=== PATIENT | female | born 1960 | race Hispanic/Latino ===

== ENCOUNTER 2016-05-31 18:47 | Inpatient (IN) | payer MEDICAID, OTHER ==
[2016-05-31] MEDS ORDERED: ZOFRAN IV ONE ×2 (19:53→21:28)
[2016-05-31 20:18] LABS: Basophils % (Auto) 0.4 % (0.0-1.8); Eosinophils % (Auto) 0.1 % (0.0-4.3); Hematocrit 30.5 % (30.3-42.9); Hemoglobin 10.1 gm/dl (10.1-14.3); Mean Corpuscular HGB Conc 33 % (30-34); Mean Corpuscular Hemoglobin 26 pg (28-32); Mean Corpuscular Volume 80 fl (79-97); Platelet Count 191 K/mm3 (140-440); Red Blood Count 3.82 M/mm3 (3.65-5.03); Red Cell Distribution Width 15.2 % (13.2-15.2); White Blood Count 11.7 K/mm3 (4.5-11.0)
[2016-05-31 20:32] LABS: BUN/Creatinine Ratio 15.45; Calcium 8.1 mg/dL (8.4-10.2); Chloride 91.8 mmol/L (98-107); Potassium 3.6 mmol/L (3.6-5.0)
[2016-05-31 20:36] LABS: Alanine Aminotransferase 14 units/L (7-56); Albumin 2.5 g/dL (3.9-5); Albumin/Globulin Ratio 0.6 %; Alkaline Phosphatase 150 units/L (35-129); Bilirubin,Direct 0.3 mg/dL (0-0.2); Bilirubin,Indirect 0.4 mg/dL; Bilirubin,Total 0.7 mg/dL (0.1-1.2); Creatine Kinase 112 units/L (30-135); Lipase 85 units/L (13-60)
[2016-05-31 20:37] LABS: Creatine Kinase MB < 1.0 ng/mL (0.0-4.0)
[2016-05-31] MEDS ORDERED: TYLENOL PO ONE (20:55)
[2016-05-31] MEDS ORDERED: NACL 0.9% 1000 ML 1,000 ML IV ONE (20:55)
[2016-05-31] MEDS ORDERED: DILAUDID IV ONE (21:28)
[2016-05-31 21:33] LABS: Bacteria,Urine 2+ /HPF (Negative); Bilirubin,Urine NEG (Negative); Blood,Urine MOD (Negative); Ketones,Urine TR mg/dL (Negative); Leukocyte Esterase,Urine LG (Negative); Mucus,Urine FEW /HPF; Nitrite,Urine NEG (Negative); Urobilinogen,Urine < 2.0 mg/dL (<2.0)
[2016-05-31 21:34] LABS: Protein,Urine >500 mg/dL (Negative)
[2016-05-31 21:35] LABS: WBC,Urine > 182.0 /HPF (0.0-6.0)
--- NOTE | 2016-05-31 22:46 | Cat Scan Report ---
FINAL REPORT PROCEDURE: CT ABDOMEN PELVIS WO CON TECHNIQUE: Computerized axial tomography of the abdomen and pelvis was performed without intravenous contrast. This study is performed without intravascular contrast material and its sensitivity for abdominal and pelvic pathology, including neoplasms, inflammation, abscess, free fluid, thrombosis, arterial dissection and infarction, is reduced compared with a contrast enhanced study. HISTORY: abd pain n/v COMPARISON: No prior studies are available for comparison. FINDINGS: Visualized lower thorax: No significant abnormality. Liver: Heterogeneous density. There is nodular contour and enlarged left hepatic lobe, suggesting cirrhotic changes. Spleen: Calcified granulomas are present. The spleen is mildly prominent. Gallbladder and biliary system: There has been cholecystectomy. Small amount of intrahepatic air is seen in the left hepatic lobe, favored to be related to biliary air. Pancreas: Normal. Adrenals: Normal. Kidneys: No hydronephrosis or urolithiasis. GI tract: Mild sigmoid diverticulosis. No appendiceal inflammation. No evidence of bowel obstruction. Mild wall thickening and stranding of the 2nd portion of the duodenum may be related to duodenitis Lymph nodes and mesentery: Numerous subcentimeter upper abdominal nodes are noted. Vasculature: Aortic atherosclerotic calcification. Bladder: Normal. Reproductive organs: Normal. Peritoneum: Trace amount of free fluid is seen surrounding the liver.. Musculoskeletal structures: Focal depression of the superior endplate of L3 is likely a Schmorl's node. Other: Small fat containing periumbilical hernia. IMPRESSION: Cirrhotic changes of the liver. Upper abdominal lymphadenopathy. Intrahepatic air is favored to be related to pneumobilia related to prior surgery. Mild wall thickening and stranding of the duodenum concerning for duodenitis.
[2016-05-31] MEDS ORDERED: ROCEPHIN/NS 1 GM/50 ML 1 GM/50 ML BAG IV ONE (22:59)
--- NOTE | 2016-05-31 23:06 | Emergency Department Report ---
ED N/V/D HPI - General Chief complaint: Hyperglycemia Stated complaint: HIGH BLOOD SUGAR Time Seen by Provider: 05/31/16 19:52 Source: patient, EMS Mode of arrival: Stretcher Limitations: No Limitations - History of Present Illness Initial comments: 55-year-old female with a past medical history previous CVA, Cabgx 3 hepatitis, liver cirrhosis, diabetes, hypertension, and previous cholecystectomy present to the hospital with complaints of nausea and vomiting since yesterday. Patient been noncompliant with her insulin for about 5 days. Yesterday she developed nausea vomiting and diarrhea with by mouth intolerance. Positive fever and chills reported. Serum 100.1 here. Patient denies any chest pain. Patient does complain of some abdominal pain and states that she fell recently striking her abdomen. Pain is moderate, aching, intermittent, and worse with palpation. No reports of respiratory symptoms. [employer] states she recently moved back here from [place] and ran out of medications because she did not have a doctor locally. She did receive her flu shot this year. Patient also states she supposedly of Seroquel and Lyrica and has a history of manic depressive disorder. - Related Data Home Medications Medication Instructions Recorded Confirmed Last Taken glipiZIDE [glipiZIDE XL] 10 mg PO QDAY 03/17/13 03/18/13 Unknown metFORMIN [Glucophage] 500 mg PO BID 03/17/13 03/18/13 Unknown Previous Rx's Medication Instructions Recorded Last Taken Type Clindamycin [Clindamycin Oral] 300 mg PO Q8H #30 cap 03/18/13 Unknown Rx Allergies Allergy/AdvReac Type Severity Reaction Status Date / Time morphine AdvReac Itching Verified 03/18/13 12:01 ED Review of Systems ROS: Stated complaint: HIGH BLOOD SUGAR Other details as noted in HPI Comment: All other systems reviewed and negative Other: Constitutional: + fever Eyes: No eye pain visual changes or discharge ENT: No ear pain or throat pain Neck: Denies pain Respiratory: Denies cough wheezing Cardiovascular: Denies chest pain, palpitations, syncope Endocrine: elevated glucose : denies dysuria GI: as per hpi Musculoskeletal: Denies back pain Skin: Denies rash, lesions, erythema Neurologic: Denies headache, numbness, weakness Psychiatric: Denies suicidal ideation, hallucinations ED Past Medical Hx - Past Medical History Hx Hypertension: Yes Hx CVA: Yes (x2) Hx Diabetes: Yes Hx Psychiatric Treatment: Yes (manic depressive disorder) Additional medical history: hepatitis, Liver cirrhosis - Surgical History Hx Open Heart Surgery: Yes Hx Cholecystectomy: Yes Additional Surgical History: c section x 3, CABG - Social History Smoking Status: Current Every Day Smoker Substance Use Type: None - Medications Home Medications: Home Medications Medication Instructions Recorded Confirmed Last Taken Type glipiZIDE [glipiZIDE XL] 10 mg PO QDAY 03/17/13 03/18/13 Unknown History metFORMIN [Glucophage] 500 mg PO BID 03/17/13 03/18/13 Unknown History Clindamycin [Clindamycin Oral] 300 mg PO Q8H #30 cap 03/18/13 Unknown Rx ED Physical Exam - General Limitations: No Limitations - Other Other exam information: General: No limitations, patient is alert in no acute distress Head exam: Atraumatic, normocephalic Eyes exam: Normal appearance ENT: dry mucous membrane Neck exam: Normal inspection, full range of motion, nontender Respiratory exam: Clear to auscultation bilateral, no wheezes, rales, crackles Cardiovascular: Normal rate and rhythm, tachycardic Abdomen: Soft, ecchymosis to epigastric area. Tender to palpation epigastric area and right abdomen Extremity: Full range of motion normal inspection no deformity Back: Normal Inspection, full range of motion, no tenderness Neurologic: Alert, oriented x3, cranial nerves intact, no motor or sensory deficit Psychiatric: normal affect, normal mood Skin: Warm, dry, intact ED Course Vital Signs 05/31/16 05/31/16 05/31/16 19:20 19:41 19:46 Temperature Pulse Rate 57 L 110 H 108 H Respiratory 14 14 16 Rate Blood Pressure 132/68 Blood Pressure [Left] O2 Sat by Pulse 100 95 Oximetry 05/31/16 05/31/16 05/31/16 19:50 19:56 20:00 Temperature 100.1 F H Pulse Rate 107 H 107 H 103 H Respiratory 16 19 15 Rate Blood Pressure 132/68 132/68 145/56 Blood Pressure 145/56 [Left] O2 Sat by Pulse 97 97 96 Oximetry 05/31/16 05/31/16 05/31/16 20:06 20:10 20:16 Temperature Pulse Rate 101 H 100 H 102 H Respiratory 21 22 16 Rate Blood Pressure 145/56 145/56 145/56 Blood Pressure [Left] O2 Sat by Pulse 95 96 98 Oximetry 05/31/16 05/31/16 05/31/16 20:20 20:26 20:30 Temperature Pulse Rate 106 H 108 H 108 H Respiratory 15 13 17 Rate Blood Pressure 145/56 145/56 131/65 Blood Pressure [Left] O2 Sat by Pulse 98 98 97 Oximetry 05/31/16 05/31/16 05/31/16 20:36 20:40 20:46 Temperature Pulse Rate 108 H 109 H 109 H Respiratory 13 18 22 Rate Blood Pressure 131/65 131/65 131/65 Blood Pressure [Left] O2 Sat by Pulse 97 97 96 Oximetry 05/31/16 05/31/16 05/31/16 20:50 20:56 21:00 Temperature Pulse Rate 113 H 110 H 109 H Respiratory 17 15 15 Rate Blood Pressure 131/65 131/65 128/103 Blood Pressure [Left] O2 Sat by Pulse 99 98 96 Oximetry 05/31/16 05/31/16 05/31/16 21:06 21:10 21:16 Temperature Pulse Rate 107 H 105 H 104 H Respiratory 12 14 19 Rate Blood Pressure 128/103 128/103 128/103 Blood Pressure [Left] O2 Sat by Pulse 97 97 97 Oximetry 05/31/16 05/31/16 05/31/16 21:20 21:26 21:30 Temperature Pulse Rate 103 H 100 H 100 H Respiratory 19 19 19 Rate Blood Pressure 128/103 128/103 141/66 Blood Pressure [Left] O2 Sat by Pulse 98 99 98 Oximetry 05/31/16 05/31/16 05/31/16 21:36 21:37 21:47 Temperature Pulse Rate 98 H Respiratory 14 12 12 Rate Blood Pressure 141/66 Blood Pressure [Left] O2 Sat by Pulse 98 Oximetry - Reevaluation(s) Reevaluation #1: 05/31/16 23:13 Nausea and vomiting improved with Zofran. IV fluids initiated recent denies history CHF despite significant cardiac history ED Medical Decision Making - Lab Data Result diagrams: 05/31/16 19:51 05/31/16 19:51 Lab Results 05/31/16 05/31/16 05/31/16 Range/Units 19:47 19:51 19:51 WBC 11.7 H (4.5-11.0) K/mm3 RBC 3.82 (3.65-5.03) M/mm3 Hgb 10.1 (10.1-14.3) gm/dl Hct 30.5 (30.3-42.9) % MCV 80 (79-97) fl MCH 26 L (28-32) pg MCHC 33 (30-34) % RDW 15.2 (13.2-15.2) % Plt Count 191 (140-440) K/mm3 Lymph % (Auto) 4.2 L (13.4-35.0) % [place] % (Auto) 6.0 (0.0-7.3) % Eos % (Auto) 0.1 (0.0-4.3) % Baso % (Auto) 0.4 (0.0-1.8) % Lymph # 0.5 L (1.2-5.4) K/mm3 [place] # 0.7 (0.0-0.8) K/mm3 Eos # 0.0 (0.0-0.4) K/mm3 Baso # 0.1 (0.0-0.1) K/mm3 Seg Neutrophils % 89.3 H (40.0-70.0) % Seg Neutrophils # 10.4 H (1.8-7.7) K/mm3 VBG pH (7.320-7.420) Sodium 130 L (137-145) mmol/L Potassium 3.6 (3.6-5.0) mmol/L Chloride 91.8 L (98-107) mmol/L Carbon Dioxide 24 (22-30) mmol/L Anion Gap 18 mmol/L BUN 17 (7-17) mg/dL Creatinine 1.1 (0.7-1.2) mg/dL Estimated GFR 51 ml/min BUN/Creatinine Ratio 15.45 % Glucose 489 H (65-100) mg/dL POC Glucose > 500 H (70-105) Lactic Acid (0.7-2.0) mmol/L Calcium 8.1 L (8.4-10.2) mg/dL Total Bilirubin (0.1-1.2) mg/dL Direct Bilirubin (0-0.2) mg/dL Indirect Bilirubin mg/dL AST (5-40) units/L ALT (7-56) units/L Alkaline Phosphatase (35-129) units/L Total Creatine Kinase (30-135) units/L CK-MB (CK-2) (0.0-4.0) ng/mL CK-MB (CK-2) Rel Index (0-4) Troponin T (0.00-0.029) ng/mL Total Protein (6.3-8.2) g/dL Albumin (3.9-5) g/dL Albumin/Globulin Ratio % Lipase (13-60) units/L Urine Color (Yellow) Urine Turbidity (Clear) Urine pH (5.0-7.0) Ur Specific [place] (1.003-1.030) Urine Protein (Negative) mg/dL Urine Glucose (UA) (Negative) mg/dL Urine Ketones (Negative) mg/dL Urine Blood (Negative) Urine Nitrite (Negative) Urine Bilirubin (Negative) Urine Urobilinogen (<2.0) mg/dL Ur Leukocyte Esterase (Negative) Urine WBC (Auto) (0.0-6.0) /HPF Urine RBC (Auto) (0.0-6.0) /HPF Urine Bacteria (Auto) (Negative) /HPF Urine Mucus /HPF Ketones (-0.28) mmol/L 05/31/16 05/31/16 05/31/16 Range/Units 19:51 20:00 20:00 WBC (4.5-11.0) K/mm3 RBC (3.65-5.03) M/mm3 Hgb (10.1-14.3) gm/dl Hct (30.3-42.9) % MCV (79-97) fl MCH (28-32) pg MCHC (30-34) % RDW (13.2-15.2) % Plt Count (140-440) K/mm3 Lymph % (Auto) (13.4-35.0) % [place] % (Auto) (0.0-7.3) % Eos % (Auto) (0.0-4.3) % Baso % (Auto) (0.0-1.8) % Lymph # (1.2-5.4) K/mm3 [place] # (0.0-0.8) K/mm3 Eos # (0.0-0.4) K/mm3 Baso # (0.0-0.1) K/mm3 Seg Neutrophils % (40.0-70.0) % Seg Neutrophils # (1.8-7.7) K/mm3 VBG pH 7.388 (7.320-7.420) Sodium (137-145) mmol/L Potassium (3.6-5.0) mmol/L Chloride (98-107) mmol/L Carbon Dioxide (22-30) mmol/L Anion Gap mmol/L BUN (7-17) mg/dL Creatinine (0.7-1.2) mg/dL Estimated GFR ml/min BUN/Creatinine Ratio % Glucose (65-100) mg/dL POC Glucose (70-105) Lactic Acid 1.9 (0.7-2.0) mmol/L Calcium (8.4-10.2) mg/dL Total Bilirubin 0.7 (0.1-1.2) mg/dL Direct Bilirubin 0.3 H (0-0.2) mg/dL Indirect Bilirubin 0.4 mg/dL AST 25 (5-40) units/L ALT 14 (7-56) units/L Alkaline Phosphatase 150 H (35-129) units/L Total Creatine Kinase 112 (30-135) units/L CK-MB (CK-2) < 1.0 (0.0-4.0) ng/mL CK-MB (CK-2) Rel Index 0.8 (0-4) Troponin T < 0.010 (0.00-0.029) ng/mL Total Protein 7.0 (6.3-8.2) g/dL Albumin 2.5 L (3.9-5) g/dL Albumin/Globulin Ratio 0.6 % Lipase 85 H (13-60) units/L Urine Color (Yellow) Urine Turbidity (Clear) Urine pH (5.0-7.0) Ur Specific [place] (1.003-1.030) Urine Protein (Negative) mg/dL Urine Glucose (UA) (Negative) mg/dL Urine Ketones (Negative) mg/dL Urine Blood (Negative) Urine Nitrite (Negative) Urine Bilirubin (Negative) Urine Urobilinogen (<2.0) mg/dL Ur Leukocyte Esterase (Negative) Urine WBC (Auto) (0.0-6.0) /HPF Urine RBC (Auto) (0.0-6.0) /HPF Urine Bacteria (Auto) (Negative) /HPF Urine Mucus /HPF Ketones (-0.28) mmol/L 05/31/16 05/31/16 Range/Units 20:58 Unknown WBC (4.5-11.0) K/mm3 RBC (3.65-5.03) M/mm3 Hgb (10.1-14.3) gm/dl Hct (30.3-42.9) % MCV (79-97) fl MCH (28-32) pg MCHC (30-34) % RDW (13.2-15.2) % Plt Count (140-440) K/mm3 Lymph % (Auto) (13.4-35.0) % [place] % (Auto) (0.0-7.3) % Eos % (Auto) (0.0-4.3) % Baso % (Auto) (0.0-1.8) % Lymph # (1.2-5.4) K/mm3 [place] # (0.0-0.8) K/mm3 Eos # (0.0-0.4) K/mm3 Baso # (0.0-0.1) K/mm3 Seg Neutrophils % (40.0-70.0) % Seg Neutrophils # (1.8-7.7) K/mm3 VBG pH (7.320-7.420) Sodium (137-145) mmol/L Potassium (3.6-5.0) mmol/L Chloride (98-107) mmol/L Carbon Dioxide (22-30) mmol/L Anion Gap mmol/L BUN (7-17) mg/dL Creatinine (0.7-1.2) mg/dL Estimated GFR ml/min BUN/Creatinine Ratio % Glucose (65-100) mg/dL POC Glucose 393 H (70-105) Lactic Acid (0.7-2.0) mmol/L Calcium (8.4-10.2) mg/dL Total Bilirubin (0.1-1.2) mg/dL Direct Bilirubin (0-0.2) mg/dL Indirect Bilirubin mg/dL AST (5-40) units/L ALT (7-56) units/L Alkaline Phosphatase (35-129) units/L Total Creatine Kinase (30-135) units/L CK-MB (CK-2) (0.0-4.0) ng/mL CK-MB (CK-2) Rel Index (0-4) Troponin T (0.00-0.029) ng/mL Total Protein (6.3-8.2) g/dL Albumin (3.9-5) g/dL Albumin/Globulin Ratio % Lipase (13-60) units/L Urine Color [place] (Yellow) Urine Turbidity Turbid (Clear) Urine pH 5.0 (5.0-7.0) Ur Specific [place] 1.016 (1.003-1.030) Urine Protein >500 (Negative) mg/dL Urine Glucose (UA) >=500 (Negative) mg/dL Urine Ketones Tr (Negative) mg/dL Urine Blood Mod (Negative) Urine Nitrite Neg (Negative) Urine Bilirubin Neg (Negative) Urine Urobilinogen < 2.0 (<2.0) mg/dL Ur Leukocyte Esterase Lg (Negative) Urine WBC (Auto) > 182.0 H (0.0-6.0) /HPF Urine RBC (Auto) 4.0 (0.0-6.0) /HPF Urine Bacteria (Auto) 2+ (Negative) /HPF Urine Mucus Few /HPF Ketones (-0.28) mmol/L - Radiology Data Radiology results: report reviewed CT abdomen and pelvis IV contrast: Cirrhotic changes of the liver. Upper abdominal lymphadenopathy. Intrahepatic air likely related to prior surgery, mild wall thickening and stranding of the duodenum concerning for duodenitis - Medical Decision Making Patient has hyperglycemia without signs of DKA. She also has a UTI. She will be admitted to the hospital for further treatment. Patient treated with normal saline, regular insulin, Protonix (for duodenitis), and Rocephin. - Differential Diagnosis pancreatitis, bowel syndrome, UTI, gastroenteritis Critical Care Time: No Critical care attestation.: If time is entered above; I have spent that time in minutes in the direct care of this critically ill patient, excluding procedure time. ED Disposition Clinical Impression: Noncompliance with medication regimen, Vomiting, UTI (urinary tract infection) , Duodenitis, Liver cirrhosis, Diabetes mellitus with hyperglycemia Disposition: OP ADMITTED IP TO THIS HOSP Is pt being admited?: Yes Condition: Stable Time of Disposition: 23:06 (Dr bee/hosp)
[2016-05-31] MEDS ORDERED: PROTONIX IV ONE (23:16)
[2016-06-01] MEDS ORDERED: D50W (25GM) IV PRN (00:21)
[2016-06-01] MEDS ORDERED: DULCOLAX PR PRN (00:21)
[2016-06-01] MEDS ORDERED: MILK OF MAGNESIA PO PRN (00:21)
[2016-06-01] MEDS ORDERED: TYLENOL PO PRN (00:21)
--- NOTE | 2016-06-01 00:25 | History and Physical Report ---
History of Present Illness Date of examination: 06/01/16 History of present illness: 55 year-old man with a history of hypertension, diabetes, CVA, cirrhosis comes emergency room with nausea vomiting. Also admits to fever, chills, frequent urination, no dysuria. She states that her gait is usually unsteady, usually has frequent fall, she fell this morning, sustaining a bruise to her abdomen where she is complaining of discomfort in the epigastric area. Patient recently moved from [place], she stated he takes her a long time to get up and ambulate, she has not taken her medication in the last 5 days, patient did not run out of her medication, it required too much effort to get out of the bed and ambulate to get her medications Patient denies chest pain, palpitation, shortness of breath, cough, hematochezia, dysuria, frequency, focal weakness, dysarthria, polydipsia polyuria, hot or cold intolerance, easy bruisability, or rash or bleeding from mucosal membrane, rhinorrhea, epistaxis, earache, tinnitus, blurry vision, eye discharge, anxiety, depression. Other review of systems negative PAST SURGICAL HISTORY: Aortic valve replacement, cholecystectomy, SOCIAL HISTORY: Smoke 10 cigarettes a day, no alcohol or drugs FAMILY HISTORY: Hypertension diabetes - Medications and Allergies Allergies Allergy/AdvReac Type Severity Reaction Status Date / Time morphine Allergy Itching Verified 06/02/16 19:12 Home Medications Medication Instructions Recorded Confirmed Last Taken Type glipiZIDE [glipiZIDE XL] 10 mg PO BID 03/17/13 06/01/16 05/30/16 History ALBUTEROL NEB's [Proventil] 2.5 mg IH TID PRN 06/01/16 06/01/16 Unknown History Escitalopram Oxalate [Lexapro] 20 mg PO DAILY 06/01/16 06/01/16 05/30/16 History Furosemide [Lasix TAB] 40 mg PO TID 06/01/16 06/01/16 05/31/16 History Hydroxyzine HCl [hydrOXYzine] 50 mg PO BID 06/01/16 06/01/16 05/30/16 History Levothyroxine [Synthroid] 25 mcg PO QAM 06/01/16 06/01/16 05/31/16 History Metoprolol [Lopressor] 25 mg PO BID 06/01/16 06/01/16 05/30/16 History Pantoprazole [Protonix] 40 mg PO QDAY 06/01/16 06/01/16 05/31/16 History Pregabalin [Lyrica] 75 mg PO BID 06/01/16 06/01/16 05/30/16 History Sucralfate [Carafate] 1 gm PO ACHS 06/01/16 06/01/16 05/31/16 History Active Meds: Active Medications Acetaminophen (Tylenol) 650 mg PO Q4H PRN PRN Reason: Pain MILD(1-3)/Fever >100.5/GUTHRIE Bisacodyl (Dulcolax) 10 mg AL QDAY PRN PRN Reason: Constipation unrelieved by MOM Dextrose (D50w (25gm)) 50 ml IV PRN PRN PRN Reason: Hypoglycemia Enoxaparin Sodium (Lovenox) 30 mg SUB-Q QDAY INNA Ceftriaxone Sodium (Rocephin/Ns 1 Gm/50 Ml) 1 gm in 50 mls @ 100 mls/hr IV Q24H INNA Insulin Aspart (Novolog) 0 units SUB-Q ACHS INNA PRN Reason: Protocol Magnesium Hydroxide (Milk Of Magnesia) 30 ml PO Q4H PRN PRN Reason: Constipation Ondansetron HCl (Zofran) 4 mg IV Q8H PRN PRN Reason: N/V unrelieved by Reglan Oxycodone/Acetaminophen (Percocet 5/325) 1 tab PO Q6H PRN PRN Reason: Pain, Moderate (4-6) Exam - Physical Exam Narrative exam: Gen. appearance: Patient lying in bed, no apparent distress HEENT: Normocephalic, atraumatic, pupils equally round and reactive to light, extraocular movement intact, and no sclericterus,. No JVD or thyromegaly or nodule,neck supple, no carotid bruit ,mucous membranes moist, no exudate or erythema Heart: S1, S2, regular rate and rhythm Lungs: Clear to auscultation bilaterally, breathing comfortable Abdomen: Positive bowel sounds, nontender, nondistended, no organomegaly Extremity:bruise in epigastric area, No edema, cyanosis, clubbing Skin: No rash, nodules, warm, dry Neuro: Oriented 3, cranial nerves II-12 intact, speech is fluent, motor and sensory intact - Constitutional Vitals: Temp Pulse Resp BP Pulse Ox 100.1 F H 98 H 12 141/66 98 05/31/16 20:00 05/31/16 21:36 05/31/16 21:47 05/31/16 21:36 05/31/16 21:36 Results - Labs CBC & Chem 7: 06/02/16 05:37 06/02/16 05:37 Labs: Abnormal lab results 05/31/16 05/31/16 05/31/16 Range/Units 19:47 19:51 19:51 WBC 11.7 H (4.5-11.0) K/mm3 MCH 26 L (28-32) pg Lymph % (Auto) 4.2 L (13.4-35.0) % Lymph # 0.5 L (1.2-5.4) K/mm3 Seg Neutrophils % 89.3 H (40.0-70.0) % Seg Neutrophils # 10.4 H (1.8-7.7) K/mm3 Sodium 130 L (137-145) mmol/L Chloride 91.8 L (98-107) mmol/L Glucose 489 H (65-100) mg/dL POC Glucose > 500 H (70-105) Calcium 8.1 L (8.4-10.2) mg/dL Direct Bilirubin (0-0.2) mg/dL Alkaline Phosphatase (35-129) units/L Albumin (3.9-5) g/dL Lipase (13-60) units/L Urine WBC (Auto) (0.0-6.0) /HPF 05/31/16 05/31/16 05/31/16 Range/Units 20:00 20:58 Unknown WBC (4.5-11.0) K/mm3 MCH (28-32) pg Lymph % (Auto) (13.4-35.0) % Lymph # (1.2-5.4) K/mm3 Seg Neutrophils % (40.0-70.0) % Seg Neutrophils # (1.8-7.7) K/mm3 Sodium (137-145) mmol/L Chloride (98-107) mmol/L Glucose (65-100) mg/dL POC Glucose 393 H (70-105) Calcium (8.4-10.2) mg/dL Direct Bilirubin 0.3 H (0-0.2) mg/dL Alkaline Phosphatase 150 H (35-129) units/L Albumin 2.5 L (3.9-5) g/dL Lipase 85 H (13-60) units/L Urine WBC (Auto) > 182.0 H (0.0-6.0) /HPF - Imaging and Cardiology CT scan - abdomen: report reviewed CT scan - pelvis: report reviewed Assessment and Plan Failure to thrive Urinary tract infection Have her glycemia/diabetes type 2 Hypertension Cirrhosis History of CVA Admits medicine Start IV Rocephin, follow cultures Consult physical therapy Check fingersticks and initiate insulin sliding scale Continue appropriate outpatient medication, start DVT prophylaxis
[2016-06-01] MEDS: ROCEPHIN/NS 1 GM/50 ML 1 GM/50 ML BAG IV SCH (01:00)
[2016-06-01] MEDS: NOVOLOG SUB-Q SCH ×4 (08:17→21:55)
[2016-06-01] MEDS: PERCOCET 5/325 PO PRN ×3 (08:19→21:54)
--- NOTE | 2016-06-01 10:07 | Admit Criteria Form ---
Admission Criteria Documentation: GASTRITIS AND DUODENITIS Clinical Indications for Admission to Inpatient Care (Place 'X' for any and all applicable criteria): Admission is indicated for ANY ONE of the following (1)(2)(3): [ X]I. Inpatient admission required rather than observation care (Also use Gastritis and Duodenitis: Observation Care as appropriate) because of ANY ONE of the following: [ ]a) Caustic ingestion related injury that requires acute inpatient care (5) [X]b) Vomiting that is severe or persistent (6) [ ]c) Volume depletion that is severe or persistent [ ]d) Severe pain requiring acute inpatient management [ ]e) Severe electrolyte abnormalities requiring inpatient care [ ]f) High fever or infection requiring inpatient admission indicated by ANY ONE of the following(7)(8): [ ]A. Appropriate outpatient or observation care antimicrobial treatment unavailable, not effective, not feasible [ ]B. Temp. > 104.9 F (oral) [ ]C. Temp. >103.1F (oral) or < 96.8 F (rectal) that does not respond to all emergency treatment measures [ ]D. Documented bacteremia [ ]g) IV fluid to replace significant ongoing losses (greater than 3 L/m2 per day)(12)(13) [ ]h) Parenteral nutrition regimen that must be implemented on inpatient basis [X]i) Other condition, treatment or monitoring requiring inpatient admission [ ]II. Hemodynamic instability [ ]III. Suspected gastric outlet obstruction [ ]IV. Suspected perforation of viscus [ ]V. Peritoneal signs Extended stay beyond goal length of stay may be needed for (2)(3): [ ]a) Hemorrhagic gastritis or duodenitis (Also use Gastrointestinal Bleeding, Upper care as appropriate) (20) [ ]b) Severe caustic injury [ ]c) Gastroparesis(23) [ ]d) Surgical intervention (22) [ ]e) Older patient (patient older than 65 years of age) The original [employer] content created by [employer] has been revised. The portions of the content which have been revised are identified through the use of italic text or in bold, and [facility] has neither reviewed nor approved the modified material.All other unmodified content is copyright [facility] [employer]. Please see references footnoted in the original [facility] [employer] edition 2016 Admission Criteria Met: Yes
[2016-06-01] MEDS: LOVENOX SUB-Q SCH (10:46)
[2016-06-02] MEDS: ROCEPHIN/NS 1 GM/50 ML 1 GM/50 ML BAG IV SCH (00:36)
[2016-06-02] MEDS: ZOFRAN IV PRN ×2 (00:36→17:01)
[2016-06-02 06:09] LABS: Basophils % (Auto) 0.5 % (0.0-1.8); Eosinophils % (Auto) 1.6 % (0.0-4.3); Hematocrit 27.7 % (30.3-42.9); Hemoglobin 9.1 gm/dl (10.1-14.3); Mean Corpuscular HGB Conc 33 % (30-34); Mean Corpuscular Hemoglobin 26 pg (28-32); Mean Corpuscular Volume 80 fl (79-97); Platelet Count 170 K/mm3 (140-440); Red Blood Count 3.46 M/mm3 (3.65-5.03); Red Cell Distribution Width 15.5 % (13.2-15.2); White Blood Count 5.6 K/mm3 (4.5-11.0)
[2016-06-02 06:52] LABS: Anion Gap 17 mmol/L; BUN/Creatinine Ratio 16.25; Blood Urea Nitrogen 13 mg/dL (7-17); Calcium 8.1 mg/dL (8.4-10.2); Carbon Dioxide 25 mmol/L (22-30); Chloride 99.2 mmol/L (98-107); Glucose 280 mg/dL (65-100); Potassium 3.9 mmol/L (3.6-5.0); Sodium 137 mmol/L (137-145)
[2016-06-02] MEDS: NOVOLOG SUB-Q SCH ×3 (08:23→17:02)
[2016-06-02] MEDS: LOVENOX SUB-Q SCH (10:27)
[2016-06-02] MEDS: LYRICA PO SCH (21:44)
[2016-06-02] MEDS: LOPRESSOR PO SCH (21:45)
[2016-06-02] MEDS: CARAFATE PO SCH (21:45)
[2016-06-02] MEDS: LASIX PO SCH (21:45)
--- NOTE | 2016-06-02 23:24 | Progress Note ---
Hospitalist Physical - Constitutional Vitals: Temp Pulse Resp BP Pulse Ox 99.9 F H 88 16 174/81 95 06/02/16 15:10 06/02/16 21:45 06/02/16 15:10 06/02/16 15:10 06/02/16 15:10 Results - Labs CBC & Chem 7: 06/02/16 05:37 06/02/16 05:37 Labs: Laboratory Last Values WBC 5.6 K/mm3 (4.5-11.0) 06/02/16 05:37 RBC 3.46 M/mm3 (3.65-5.03) L 06/02/16 05:37 Hgb 9.1 gm/dl (10.1-14.3) L 06/02/16 05:37 Hct 27.7 % (30.3-42.9) L 06/02/16 05:37 MCV 80 fl (79-97) 06/02/16 05:37 MCH 26 pg (28-32) L 06/02/16 05:37 MCHC 33 % (30-34) 06/02/16 05:37 RDW 15.5 % (13.2-15.2) H 06/02/16 05:37 Plt Count 170 K/mm3 (140-440) 06/02/16 05:37 Lymph % (Auto) 14.4 % (13.4-35.0) 06/02/16 05:37 [place] % (Auto) 9.9 % (0.0-7.3) H 06/02/16 05:37 Eos % (Auto) 1.6 % (0.0-4.3) 06/02/16 05:37 Baso % (Auto) 0.5 % (0.0-1.8) 06/02/16 05:37 Lymph # 0.8 K/mm3 (1.2-5.4) L 06/02/16 05:37 [place] # 0.6 K/mm3 (0.0-0.8) 06/02/16 05:37 Eos # 0.1 K/mm3 (0.0-0.4) 06/02/16 05:37 Baso # 0.0 K/mm3 (0.0-0.1) 06/02/16 05:37 Seg Neutrophils % 73.6 % (40.0-70.0) H 06/02/16 05:37 Seg Neutrophils # 4.1 K/mm3 (1.8-7.7) 06/02/16 05:37 VBG pH 7.388 (7.320-7.420) 05/31/16 19:51 Sodium 137 mmol/L (137-145) D 06/02/16 05:37 Potassium 3.9 mmol/L (3.6-5.0) 06/02/16 05:37 Chloride 99.2 mmol/L (98-107) 06/02/16 05:37 Carbon Dioxide 25 mmol/L (22-30) 06/02/16 05:37 Anion Gap 17 mmol/L 06/02/16 05:37 BUN 13 mg/dL (7-17) 06/02/16 05:37 Creatinine 0.8 mg/dL (0.7-1.2) 06/02/16 05:37 Estimated GFR > 60 ml/min 06/02/16 05:37 BUN/Creatinine Ratio 16.25 % 06/02/16 05:37 Glucose 280 mg/dL (65-100) H 06/02/16 05:37 POC Glucose 369 (70-105) H 06/02/16 21:29 Lactic Acid 1.9 mmol/L (0.7-2.0) 05/31/16 20:00 Calcium 8.1 mg/dL (8.4-10.2) L 06/02/16 05:37 Total Bilirubin 0.7 mg/dL (0.1-1.2) 05/31/16 20:00 Direct Bilirubin 0.3 mg/dL (0-0.2) H 05/31/16 20:00 Indirect Bilirubin 0.4 mg/dL 05/31/16 20:00 AST 25 units/L (5-40) 05/31/16 20:00 ALT 14 units/L (7-56) 05/31/16 20:00 Alkaline Phosphatase 150 units/L (35-129) H 05/31/16 20:00 Total Creatine Kinase 112 units/L (30-135) 05/31/16 20:00 CK-MB (CK-2) < 1.0 ng/mL (0.0-4.0) 05/31/16 20:00 CK-MB (CK-2) Rel Index 0.8 (0-4) 05/31/16 20:00 Troponin T < 0.010 ng/mL (0.00-0.029) 05/31/16 20:00 Total Protein 7.0 g/dL (6.3-8.2) 05/31/16 20:00 Albumin 2.5 g/dL (3.9-5) L 05/31/16 20:00 Albumin/Globulin Ratio 0.6 % 05/31/16 20:00 Lipase 85 units/L (13-60) H 05/31/16 20:00 Urine Color Kizzy (Yellow) 05/31/16 Unknown Urine Turbidity Turbid (Clear) 05/31/16 Unknown Urine pH 5.0 (5.0-7.0) 05/31/16 Unknown Ur Specific [place] 1.016 (1.003-1.030) 05/31/16 Unknown Urine Protein >500 mg/dL (Negative) 05/31/16 Unknown Urine Glucose (UA) >=500 mg/dL (Negative) 05/31/16 Unknown Urine Ketones Tr mg/dL (Negative) 05/31/16 Unknown Urine Blood Mod (Negative) 05/31/16 Unknown Urine Nitrite Neg (Negative) 05/31/16 Unknown Urine Bilirubin Neg (Negative) 05/31/16 Unknown Urine Urobilinogen < 2.0 mg/dL (<2.0) 05/31/16 Unknown Ur Leukocyte Esterase Lg (Negative) 05/31/16 Unknown Urine WBC (Auto) > 182.0 /HPF (0.0-6.0) H 05/31/16 Unknown Urine RBC (Auto) 4.0 /HPF (0.0-6.0) 05/31/16 Unknown Urine Bacteria (Auto) 2+ /HPF (Negative) 05/31/16 Unknown Urine Mucus Few /HPF 05/31/16 Unknown Ketones mmol/L (-0.28) 05/31/16 19:51
[2016-06-03] MEDS: ROCEPHIN/NS 1 GM/50 ML 1 GM/50 ML BAG IV SCH (02:18)
[2016-06-03] MEDS: SYNTHROID PO SCH (06:27)
[2016-06-03] MEDS: NOVOLOG SUB-Q SCH ×5 (08:12→23:24)
[2016-06-03] MEDS: CARAFATE PO SCH ×4 (08:12→23:22)
--- NOTE | 2016-06-03 08:26 | Query- Nutrition ---
Dear Date:_06/03/16 Director Of Gift Planning/CDS:Juan Reynoso Phone#:_[phone] Exercise your independent professional judgment when responding to query. Questions asked do not imply a particular answer is desired or expected. We greatly appreciate your clarification on this issue. Clinical Documentation States: 55 year-old man with a history of hypertension, diabetes, CVA, cirrhosis comes emergency room with nausea vomiting. Also admits to fever, chills, frequent urination, no dysuria. She states that her gait is usually unsteady, usually has frequent fall, she fell this morning, sustaining a bruise to her abdomen where she is complaining of discomfort in the epigastric area. Patient recently moved from [place], she stated he takes her a long time to get up and ambulate, she has not taken her medication in the last 5 days, patient did not run out of her medication, it required too much effort to get out of the bed and ambulate to get her medications. Assessment and Plan Failure to thrive Urinary tract infection Clinical Findings Show: Sr.Albumin: 2.5 Lymphocytes: 500 Please select the most appropriate option 3 [] Mild Malnutrition [] Mild - Moderate Malnutrition [] Moderate - Severe Malnutrition [x] Severe Malnutrition Serum Albumin 2.8 to 3.4 g/dl or Pre-albumin 5 to 17 mg/dl1,2 Inadequate nutritional intake1,2,3,4 NPO > 5 days Weight loss: 5% in 1 month or 7.5% in 3 months or 10% in 6 months1, 3,4 BMI 16 to 18.4 or Weight <90% of ideal body weight1,2,3,4 Serum Albumin < 2.8 g/ dl1,2 Lymphocytes < 1500/ L2 Inadequate nutritional intake3, high stress e.g. major trauma, sepsis,pancreatitis, smalls etc. Decubitus ulcers1,2, , skin breakdown2, easy hair pluckability2 Weight <80% standard for height2 Triceps skin fold <3 mm2 Mid-arm muscle circumference <15 cm2 Creatinine-height index <60% standard2 [ ] Cachexia [ ] Emaciated w/Malnutrition [ ] Other: [ ] Unable to determine [ ] Comment/Explanation: Present on Admission: [x ] Yes (Y) [ ] Clinically undeterminable (W) [ ] No (N) Please also document response in your Progress Notes and/or Discharge Summary and indicate if the condition was present on admission. MTDD
--- NOTE | 2016-06-03 08:40 | Query- Diabetes Complications ---
Stan Wright Date:__06/03/16 Alteration Tailor/CDS:Juan Reynoso Phone#:_[phone] Exercise your independent professional judgment when responding to query. Questions asked do not imply a particular answer is desired or expected. We greatly appreciate your clarification on this issue. Clinical Documentation States: 55-year-old female with a past medical history previous CVA, Cabgx 3 hepatitis, liver cirrhosis, diabetes, hypertension, and previous cholecystectomy present to the hospital with complaints of nausea and vomiting since yesterday. Patient been noncompliant with her insulin for about 5 days. Yesterday she developed nausea vomiting and diarrhea with by mouth intolerance. Positive fever and chills reported. Serum 100.1 here. Clinical Findings Show: Serum: Glucose;>500 Sodium: 130 VBG pH: 7.388 urine protein: >500 Urine Ketones: trace Please clarify if this is: [x ] Diabetes with Hyperosmolarity [ ] Diabetic Ketoacidosis (DKA) [ ] Not applicable [ ] Other (Please specify): Please specify type as: [ ] Type I or Juvenile [ ] Out of control [ ] Inadequately controlled [ ] Poorly controlled [x ] Type II [ ] Out of control [ ] Inadequately controlled [ ] Poorly controlled Present on Admission: [x ] Yes (Y) [ ] Clinically undeterminable (W) [ ] No (N) Please also document response in your Progress Notes and/or Discharge Summary and indicate if the condition was present on admission. MTDD
[2016-06-03] MEDS ORDERED: NON-FORMULARY (Escitalopram Oxalate [Lexapro] 20 MG) PO SCH (10:00)
[2016-06-03] MEDS: LASIX PO SCH (10:14)
[2016-06-03] MEDS: LYRICA PO SCH ×2 (10:14→23:21)
[2016-06-03] MEDS: LEXAPRO PO SCH (10:14)
[2016-06-03] MEDS: LOPRESSOR PO SCH ×2 (10:14→23:21)
[2016-06-03] MEDS: LOVENOX SUB-Q SCH (10:14)
[2016-06-03] MEDS: PROTONIX PO SCH (10:15)
[2016-06-03 10:39] LABS: Anion Gap 12 mmol/L; BUN/Creatinine Ratio 13.33; Blood Urea Nitrogen 12 mg/dL (7-17); Calcium 8.1 mg/dL (8.4-10.2); Carbon Dioxide 29 mmol/L (22-30); Chloride 98.8 mmol/L (98-107); Glucose 280 mg/dL (65-100); Magnesium 1.9 mg/dL (1.7-2.3); Potassium 3.8 mmol/L (3.6-5.0); Sodium 136 mmol/L (137-145)
--- NOTE | 2016-06-03 19:40 | Progress Note ---
Hospitalist Physical - Constitutional Vitals: Temp Pulse Resp BP Pulse Ox 98.2 F 85 14 125/65 98 06/03/16 15:06 06/03/16 15:06 06/03/16 15:06 06/03/16 15:06 06/03/16 15:06 Results - Labs CBC & Chem 7: 06/02/16 05:37 06/03/16 09:19 Labs: Laboratory Last Values WBC 5.6 K/mm3 (4.5-11.0) 06/02/16 05:37 RBC 3.46 M/mm3 (3.65-5.03) L 06/02/16 05:37 Hgb 9.1 gm/dl (10.1-14.3) L 06/02/16 05:37 Hct 27.7 % (30.3-42.9) L 06/02/16 05:37 MCV 80 fl (79-97) 06/02/16 05:37 MCH 26 pg (28-32) L 06/02/16 05:37 MCHC 33 % (30-34) 06/02/16 05:37 RDW 15.5 % (13.2-15.2) H 06/02/16 05:37 Plt Count 170 K/mm3 (140-440) 06/02/16 05:37 Lymph % (Auto) 14.4 % (13.4-35.0) 06/02/16 05:37 [place] % (Auto) 9.9 % (0.0-7.3) H 06/02/16 05:37 Eos % (Auto) 1.6 % (0.0-4.3) 06/02/16 05:37 Baso % (Auto) 0.5 % (0.0-1.8) 06/02/16 05:37 Lymph # 0.8 K/mm3 (1.2-5.4) L 06/02/16 05:37 [place] # 0.6 K/mm3 (0.0-0.8) 06/02/16 05:37 Eos # 0.1 K/mm3 (0.0-0.4) 06/02/16 05:37 Baso # 0.0 K/mm3 (0.0-0.1) 06/02/16 05:37 Seg Neutrophils % 73.6 % (40.0-70.0) H 06/02/16 05:37 Seg Neutrophils # 4.1 K/mm3 (1.8-7.7) 06/02/16 05:37 VBG pH 7.388 (7.320-7.420) 05/31/16 19:51 Sodium 136 mmol/L (137-145) L 06/03/16 09:19 Potassium 3.8 mmol/L (3.6-5.0) 06/03/16 09:19 Chloride 98.8 mmol/L (98-107) 06/03/16 09:19 Carbon Dioxide 29 mmol/L (22-30) 06/03/16 09:19 Anion Gap 12 mmol/L 06/03/16 09:19 BUN 12 mg/dL (7-17) 06/03/16 09:19 Creatinine 0.9 mg/dL (0.7-1.2) 06/03/16 09:19 Estimated GFR > 60 ml/min 06/03/16 09:19 BUN/Creatinine Ratio 13.33 % 06/03/16 09:19 Glucose 280 mg/dL (65-100) H 06/03/16 09:19 POC Glucose 308 (70-105) H 06/03/16 16:27 Hemoglobin A1c 9.1 % (4-6) H 06/03/16 11:41 Lactic Acid 1.9 mmol/L (0.7-2.0) 05/31/16 20:00 Calcium 8.1 mg/dL (8.4-10.2) L 06/03/16 09:19 Magnesium 1.9 mg/dL (1.7-2.3) 06/03/16 09:19 Total Bilirubin 0.7 mg/dL (0.1-1.2) 05/31/16 20:00 Direct Bilirubin 0.3 mg/dL (0-0.2) H 05/31/16 20:00 Indirect Bilirubin 0.4 mg/dL 05/31/16 20:00 AST 25 units/L (5-40) 05/31/16 20:00 ALT 14 units/L (7-56) 05/31/16 20:00 Alkaline Phosphatase 150 units/L (35-129) H 05/31/16 20:00 Total Creatine Kinase 112 units/L (30-135) 05/31/16 20:00 CK-MB (CK-2) < 1.0 ng/mL (0.0-4.0) 05/31/16 20:00 CK-MB (CK-2) Rel Index 0.8 (0-4) 05/31/16 20:00 Troponin T < 0.010 ng/mL (0.00-0.029) 05/31/16 20:00 Total Protein 7.0 g/dL (6.3-8.2) 05/31/16 20:00 Albumin 2.5 g/dL (3.9-5) L 05/31/16 20:00 Albumin/Globulin Ratio 0.6 % 05/31/16 20:00 Lipase 85 units/L (13-60) H 05/31/16 20:00 Urine Color Kizzy (Yellow) 05/31/16 Unknown Urine Turbidity Turbid (Clear) 05/31/16 Unknown Urine pH 5.0 (5.0-7.0) 05/31/16 Unknown Ur Specific [place] 1.016 (1.003-1.030) 05/31/16 Unknown Urine Protein >500 mg/dL (Negative) 05/31/16 Unknown Urine Glucose (UA) >=500 mg/dL (Negative) 05/31/16 Unknown Urine Ketones Tr mg/dL (Negative) 05/31/16 Unknown Urine Blood Mod (Negative) 05/31/16 Unknown Urine Nitrite Neg (Negative) 05/31/16 Unknown Urine Bilirubin Neg (Negative) 05/31/16 Unknown Urine Urobilinogen < 2.0 mg/dL (<2.0) 05/31/16 Unknown Ur Leukocyte Esterase Lg (Negative) 05/31/16 Unknown Urine WBC (Auto) > 182.0 /HPF (0.0-6.0) H 05/31/16 Unknown Urine RBC (Auto) 4.0 /HPF (0.0-6.0) 05/31/16 Unknown Urine Bacteria (Auto) 2+ /HPF (Negative) 05/31/16 Unknown Urine Mucus Few /HPF 05/31/16 Unknown Ketones mmol/L (-0.28) 05/31/16 19:51
[2016-06-04] MEDS: ROCEPHIN/NS 1 GM/50 ML 1 GM/50 ML BAG IV SCH (01:38)
[2016-06-04] MEDS: SYNTHROID PO SCH (06:01)
[2016-06-04] MEDS: NOVOLOG SUB-Q SCH ×4 (06:36→22:07)
[2016-06-04] MEDS: CARAFATE PO SCH ×4 (07:30→21:16)
[2016-06-04] MEDS: LEXAPRO PO SCH (10:14)
[2016-06-04] MEDS: LYRICA PO SCH ×2 (10:14→21:16)
[2016-06-04] MEDS: PROTONIX PO SCH (10:14)
[2016-06-04] MEDS: LOVENOX SUB-Q SCH (10:15)
[2016-06-04] MEDS: LASIX PO SCH (10:15)
[2016-06-04] MEDS: LOPRESSOR PO SCH ×2 (10:15→21:17)
[2016-06-04] MEDS: LEVEMIR SUB-Q SCH (13:26)
[2016-06-04] MEDS: PERCOCET 5/325 PO PRN ×2 (14:58→21:16)
--- NOTE | 2016-06-04 21:21 | Progress Note ---
History Interval history: weak, but feeling better, working with PT Hospitalist Physical - Constitutional Vitals: Temp Pulse Resp BP Pulse Ox 98.3 F 72 18 130/60 95 06/04/16 17:00 06/04/16 17:00 06/04/16 17:00 06/04/16 17:00 06/04/16 17:00 Results - Labs CBC & Chem 7: 06/02/16 05:37 06/03/16 09:19 Labs: Laboratory Last Values WBC 5.6 K/mm3 (4.5-11.0) 06/02/16 05:37 RBC 3.46 M/mm3 (3.65-5.03) L 06/02/16 05:37 Hgb 9.1 gm/dl (10.1-14.3) L 06/02/16 05:37 Hct 27.7 % (30.3-42.9) L 06/02/16 05:37 MCV 80 fl (79-97) 06/02/16 05:37 MCH 26 pg (28-32) L 06/02/16 05:37 MCHC 33 % (30-34) 06/02/16 05:37 RDW 15.5 % (13.2-15.2) H 06/02/16 05:37 Plt Count 170 K/mm3 (140-440) 06/02/16 05:37 Lymph % (Auto) 14.4 % (13.4-35.0) 06/02/16 05:37 [place] % (Auto) 9.9 % (0.0-7.3) H 06/02/16 05:37 Eos % (Auto) 1.6 % (0.0-4.3) 06/02/16 05:37 Baso % (Auto) 0.5 % (0.0-1.8) 06/02/16 05:37 Lymph # 0.8 K/mm3 (1.2-5.4) L 06/02/16 05:37 [place] # 0.6 K/mm3 (0.0-0.8) 06/02/16 05:37 Eos # 0.1 K/mm3 (0.0-0.4) 06/02/16 05:37 Baso # 0.0 K/mm3 (0.0-0.1) 06/02/16 05:37 Seg Neutrophils % 73.6 % (40.0-70.0) H 06/02/16 05:37 Seg Neutrophils # 4.1 K/mm3 (1.8-7.7) 06/02/16 05:37 VBG pH 7.388 (7.320-7.420) 05/31/16 19:51 Sodium 136 mmol/L (137-145) L 06/03/16 09:19 Potassium 3.8 mmol/L (3.6-5.0) 06/03/16 09:19 Chloride 98.8 mmol/L (98-107) 06/03/16 09:19 Carbon Dioxide 29 mmol/L (22-30) 06/03/16 09:19 Anion Gap 12 mmol/L 06/03/16 09:19 BUN 12 mg/dL (7-17) 06/03/16 09:19 Creatinine 0.9 mg/dL (0.7-1.2) 06/03/16 09:19 Estimated GFR > 60 ml/min 06/03/16 09:19 BUN/Creatinine Ratio 13.33 % 06/03/16 09:19 Glucose 280 mg/dL (65-100) H 06/03/16 09:19 POC Glucose 404 (70-105) H 06/04/16 11:40 Hemoglobin A1c 9.1 % (4-6) H 06/03/16 11:41 Lactic Acid 1.9 mmol/L (0.7-2.0) 05/31/16 20:00 Calcium 8.1 mg/dL (8.4-10.2) L 06/03/16 09:19 Magnesium 1.9 mg/dL (1.7-2.3) 06/03/16 09:19 Total Bilirubin 0.7 mg/dL (0.1-1.2) 05/31/16 20:00 Direct Bilirubin 0.3 mg/dL (0-0.2) H 05/31/16 20:00 Indirect Bilirubin 0.4 mg/dL 05/31/16 20:00 AST 25 units/L (5-40) 05/31/16 20:00 ALT 14 units/L (7-56) 05/31/16 20:00 Alkaline Phosphatase 150 units/L (35-129) H 05/31/16 20:00 Total Creatine Kinase 112 units/L (30-135) 05/31/16 20:00 CK-MB (CK-2) < 1.0 ng/mL (0.0-4.0) 05/31/16 20:00 CK-MB (CK-2) Rel Index 0.8 (0-4) 05/31/16 20:00 Troponin T < 0.010 ng/mL (0.00-0.029) 05/31/16 20:00 Total Protein 7.0 g/dL (6.3-8.2) 05/31/16 20:00 Albumin 2.5 g/dL (3.9-5) L 05/31/16 20:00 Albumin/Globulin Ratio 0.6 % 05/31/16 20:00 Lipase 85 units/L (13-60) H 05/31/16 20:00 Urine Color [place]iz[place] (Yellow) 05/31/16 Unknown Urine Turbidity Turbid (Clear) 05/31/16 Unknown Urine pH 5.0 (5.0-7.0) 05/31/16 Unknown Ur Specific [place] 1.016 (1.003-1.030) 05/31/16 Unknown Urine Protein >500 mg/dL (Negative) 05/31/16 Unknown Urine Glucose (UA) >=500 mg/dL (Negative) 05/31/16 Unknown Urine Ketones Tr mg/dL (Negative) 05/31/16 Unknown Urine Blood Mod (Negative) 05/31/16 Unknown Urine Nitrite Neg (Negative) 05/31/16 Unknown Urine Bilirubin Neg (Negative) 05/31/16 Unknown Urine Urobilinogen < 2.0 mg/dL (<2.0) 05/31/16 Unknown Ur Leukocyte Esterase Lg (Negative) 05/31/16 Unknown Urine WBC (Auto) > 182.0 /HPF (0.0-6.0) H 05/31/16 Unknown Urine RBC (Auto) 4.0 /HPF (0.0-6.0) 05/31/16 Unknown Urine Bacteria (Auto) 2+ /HPF (Negative) 05/31/16 Unknown Urine Mucus Few /HPF 05/31/16 Unknown Ketones mmol/L (-0.28) 05/31/16 19:51
[2016-06-05] MEDS: ROCEPHIN/NS 1 GM/50 ML 1 GM/50 ML BAG IV SCH (00:33)
[2016-06-05] MEDS: SYNTHROID PO SCH (05:55)
[2016-06-05] MEDS: CARAFATE PO SCH ×2 (06:30→12:30)
[2016-06-05] MEDS: NOVOLOG SUB-Q SCH ×2 (07:59→12:26)
[2016-06-05] MEDS: LEVEMIR SUB-Q SCH (08:00)
[2016-06-05 09:03] VITALS: BP 90/60
[2016-06-05] MEDS: LYRICA PO SCH (09:33)
[2016-06-05] MEDS: LEXAPRO PO SCH (09:33)
[2016-06-05] MEDS: LOVENOX SUB-Q SCH (09:33)
[2016-06-05] MEDS: LASIX PO SCH (09:34)
[2016-06-05] MEDS: PROTONIX PO SCH (09:34)
[2016-06-05] MEDS: LOPRESSOR PO SCH (09:34)
--- NOTE | 2016-06-05 10:30 | Discharge Summary ---
Providers - Providers Date of Admission: 06/01/16 00:21 Date of discharge: 06/05/16 Attending physician: MIGNON VILLAGOMEZ 06/01/16 00:24 Physical Therapy Evaluation and Treat [CONS] Routine Comment: Reason For Exam: e n t Primary care physician: BRAID PATTERN SETTER Hospitalization Condition: Stable Disposition: DC/TX HOME UNDER HOME HEALTH Time spent for discharge: 35 min Core Measure Documentation - Palliative Care Palliative Care/ Comfort Measures: Not Applicable - Core Measures Any of the following diagnoses?: none Exam - Constitutional Vitals: Temp Pulse Resp BP Pulse Ox 98.1 F 76 16 90/60 94 06/05/16 08:02 06/05/16 08:02 06/05/16 08:02 06/05/16 08:02 06/05/16 08:02 Plan Activity: advance as tolerated, fall precautions Diet: low cholesterol, low salt Follow up with: PRIMARY CARE, [Primary Care Provider] - 7 Days Prescriptions: Insulin Detemir [Levemir] 10 units SUB-Q QAMDIAB #1 units Syring W-Ndl,Disp,Insul,0.5 ml [Insulin Syringe/Needle 0.5 ML] 1 each [facility] DAILY # 30 disp.syrin
== END 2016-06-05 15:48 | disposition home health service (06) | DRG 637 ==
LOC: ED 18:47 → 3A 06-01 00:21
PROVIDERS: ADMIT Internal Medicine; ATTEND Internal Medicine
DX: E11.00 Type 2 diabetes mellitus with hyperosmolarity without nonketotic hyperglycemic-hyperosmolar coma (NKHHC) (principal); E43 Unspecified severe protein-calorie malnutrition; N39.0 Urinary tract infection, site not specified; K74.60 Unspecified cirrhosis of liver; I10 Essential (primary) hypertension; R62.7 Adult failure to thrive; B19.9 Unspecified viral hepatitis without hepatic coma; F32.9 Major depressive disorder, single episode, unspecified; F17.210 Nicotine dependence, cigarettes, uncomplicated; K29.80 Duodenitis without bleeding; Z95.2 Presence of prosthetic heart valve; Z68.32 Body mass index [BMI] 32.0-32.9, adult; Z86.73 Personal history of transient ischemic attack (TIA), and cerebral infarction without residual deficits; Z90.49 Acquired absence of other specified parts of digestive tract; Z88.5 Allergy status to narcotic agent; Z91.19 Patient's noncompliance with other medical treatment and regimen; Z83.3 Family history of diabetes mellitus; Z82.49 Family history of ischemic heart disease and other diseases of the circulatory system; Z79.84 Long term (current) use of oral hypoglycemic drugs; Z95.1 Presence of aortocoronary bypass graft
CPT/HCPCS: 36415; 74176; 80048; 80074; 81001; 82010; 82140; 82550; 82553; 82805; 82962; 83036; 83690; 83735; 84484; 85007; 85025; 87040; 87045; 87086; 87493; 93005; 93010; 94760; 96361; 96365; 96375; 96376; 99406; C9113; J0696; J1170; J1650; J1815; J1818; J2405; J7030

== ENCOUNTER 2016-07-12 20:47 | Emergency (ER) | payer SELFPAY ==
[2016-07-12 22:14] LABS: Basophils % (Auto) 0.7 % (0.0-1.8); Eosinophils % (Auto) 2.7 % (0.0-4.3); Hematocrit 28.3 % (30.3-42.9); Mean Corpuscular HGB Conc 32 % (30-34); Mean Corpuscular Volume 80 fl (79-97); Platelet Count 194 K/mm3 (140-440); Red Blood Count 3.56 M/mm3 (3.65-5.03); Red Cell Distribution Width 17.3 % (13.2-15.2); White Blood Count 5.1 K/mm3 (4.5-11.0)
[2016-07-12] MEDS ORDERED: DILAUDID IV ONE (22:20)
--- NOTE | 2016-07-12 22:22 | Emergency Department Report ---
ED Abdominal Pain HPI - General Chief Complaint: Abdominal Pain Stated Complaint: ABD PAIN Time Seen by Provider: 07/12/16 22:09 Source: patient, EMS Mode of arrival: Stretcher Limitations: No Limitations - History of Present Illness Initial Comments: This is a 55-year-old female with 4 day history of worsening abdominal pain. She actually indicates that her abdominal pains and worsening for the past month since she was discharged from the hospital. She lives at home alone. She does have a fairly extensive psychiatric history and tells with significant amount of anxiety as well. She indicates that when she is in the hospital last month and drinks 2-1/2 L off of her abdomen. She indicates that she is continuing to have increased abdominal girth since then. She's had increased pain again over this time. With acutely worsening over the last 4 days. She is felt very constipated over the last week as well. She's tried stool softener home and only had a very small results associated with this. No fevers. Still tolerating by mouth. Has had a decreased appetite however. No dysuria is reported. Severity scale (0 -10): 10 Improves With: nothing Worsens With: nothing - Related Data Previous Rx's Medication Instructions Recorded Last Taken Type HYDROcodone/APAP 5-325 [[place] 1 each PO Q6HR PRN #15 tablet 07/13/16 Unknown Rx 5/325] Lactulose 10 gm PO BID PRN #500 ml 07/13/16 Unknown Rx Allergies Allergy/AdvReac Type Severity Reaction Status Date / Time morphine Allergy Itching Verified 06/02/16 19:12 ED Review of Systems ROS: Stated complaint: ABD PAIN Other details as noted in HPI Comment: All other systems reviewed and negative Constitutional: denies: chills, fever Eyes: denies: eye pain, eye discharge, vision change ENT: denies: ear pain, throat pain Respiratory: denies: cough, shortness of breath, wheezing Cardiovascular: denies: chest pain, palpitations Endocrine: no symptoms reported Gastrointestinal: abdominal pain, constipation. denies: nausea, diarrhea Genitourinary: denies: urgency, dysuria, discharge Musculoskeletal: denies: back pain, joint swelling, arthralgia Skin: denies: rash, lesions Neurological: denies: headache, weakness, paresthesias Psychiatric: anxiety. denies: depression Hematological/Lymphatic: denies: easy bleeding, easy bruising ED Past Medical Hx - Past Medical History Hx Hypertension: Yes Hx CVA: Yes (x2) Hx Diabetes: Yes Hx Liver Disease: Yes (hep c.) Hx Psychiatric Treatment: Yes (manic depressive disorder) Additional medical history: hepatitis, Liver cirrhosis - Surgical History Hx Open Heart Surgery: Yes Hx Cholecystectomy: Yes Additional Surgical History: c section x 3, CABG - Social History Smoking Status: Current Some Day Smoker Substance Use Type: None - Medications Home Medications: Home Medications Medication Instructions Recorded Confirmed Last Taken Type HYDROcodone/APAP 5-325 [[place] 1 each PO Q6HR PRN #15 tablet 07/13/16 Unknown Rx 5/325] Lactulose 10 gm PO BID PRN #500 ml 07/13/16 Unknown Rx ED Physical Exam - General Limitations: No Limitations General appearance: alert, other (tearful in the room.) - Head Head exam: Present: atraumatic, normocephalic - Eye Eye exam: Present: normal appearance, EOMI ( Otherwise no acute distress.). Absent: scleral icterus - ENT ENT exam: Present: normal exam, normal orophraynx, mucous membranes moist - Neck Neck exam: Present: normal inspection, full ROM. Absent: tenderness, meningismus, lymphadenopathy - Respiratory Respiratory exam: Present: normal lung sounds bilaterally. Absent: respiratory distress, wheezes, rales - Cardiovascular Cardiovascular Exam: Present: regular rate, normal rhythm. Absent: systolic murmur, diastolic murmur, rubs, gallop - GI/Abdominal GI/Abdominal exam: Present: soft, distended, tenderness (diffusely. Minimal fluid wave is noted.), normal bowel sounds - Extremities Exam Extremities exam: Present: normal inspection, normal capillary refill, pedal edema (1+ with chronic skin changes noted.). Absent: tenderness - Back Exam Back exam: Present: normal inspection, full ROM. Absent: CVA tenderness (R), CVA tenderness (L) - Neurological Exam Neurological exam: Present: alert, oriented X3 - Psychiatric Psychiatric exam: Present: normal affect, normal mood - Skin Skin exam: Present: warm, dry, intact, normal color. Absent: rash ED Course Vital Signs 07/12/16 07/12/16 07/12/16 21:37 21:41 21:45 Temperature 99.2 F Pulse Rate 112 H 113 H 113 H Respiratory 15 22 14 Rate Blood Pressure 174/90 174/90 Blood Pressure 174/90 [Left] O2 Sat by Pulse 94 95 94 Oximetry 07/12/16 07/12/16 07/12/16 21:51 22:00 22:11 Temperature Pulse Rate 108 H 108 H 109 H Respiratory 18 25 H 21 Rate Blood Pressure 186/89 186/83 186/83 Blood Pressure [Left] O2 Sat by Pulse 95 95 96 Oximetry 07/12/16 07/12/16 07/12/16 22:21 22:31 22:41 Temperature Pulse Rate 103 H 101 H 99 H Respiratory 16 14 16 Rate Blood Pressure 199/94 189/78 189/78 Blood Pressure [Left] O2 Sat by Pulse 97 89 89 Oximetry 07/12/16 07/12/16 07/12/16 22:51 23:01 23:11 Temperature Pulse Rate 99 H 98 H 96 H Respiratory 17 16 18 Rate Blood Pressure 203/68 128/57 128/57 Blood Pressure [Left] O2 Sat by Pulse 80 L 77 L 79 L Oximetry 07/12/16 07/12/16 07/12/16 23:21 23:31 23:41 Temperature Pulse Rate 96 H 98 H 95 H Respiratory 19 14 16 Rate Blood Pressure 124/66 124/66 124/66 Blood Pressure [Left] O2 Sat by Pulse 78 L 93 91 Oximetry 07/12/16 07/13/16 07/13/16 23:51 00:01 00:11 Temperature Pulse Rate 93 H 90 100 H Respiratory 18 15 19 Rate Blood Pressure 124/66 124/66 124/66 Blood Pressure [Left] O2 Sat by Pulse 88 99 99 Oximetry 07/13/16 07/13/16 07/13/16 00:20 00:21 00:30 Temperature Pulse Rate 104 H 102 H 97 H Respiratory 28 H 33 H 17 Rate Blood Pressure 170/72 170/72 153/74 Blood Pressure [Left] O2 Sat by Pulse 99 98 100 Oximetry 07/13/16 07/13/16 07/13/16 00:41 00:51 01:00 Temperature Pulse Rate 91 H 89 89 Respiratory 16 16 16 Rate Blood Pressure 153/74 129/63 124/58 Blood Pressure [Left] O2 Sat by Pulse 100 99 100 Oximetry 07/13/16 07/13/16 07/13/16 01:11 01:21 01:30 Temperature Pulse Rate 89 88 89 Respiratory 16 16 15 Rate Blood Pressure 124/58 115/59 121/62 Blood Pressure [Left] O2 Sat by Pulse 99 99 99 Oximetry 07/13/16 07/13/16 07/13/16 01:41 01:51 02:00 Temperature Pulse Rate 86 88 87 Respiratory 16 17 16 Rate Blood Pressure 121/62 105/60 93/52 Blood Pressure [Left] O2 Sat by Pulse 99 93 90 Oximetry 07/13/16 07/13/16 07/13/16 02:11 03:49 03:51 Temperature Pulse Rate 89 92 H 89 Respiratory 16 17 15 Rate Blood Pressure 93/52 114/63 114/63 Blood Pressure [Left] O2 Sat by Pulse 89 93 100 Oximetry 07/13/16 07/13/16 07/13/16 03:55 04:00 04:11 Temperature Pulse Rate 94 H 90 88 Respiratory 18 16 31 H Rate Blood Pressure 128/69 110/59 Blood Pressure 114/63 [Left] O2 Sat by Pulse 96 100 100 Oximetry 07/13/16 07/13/16 07/13/16 04:21 04:30 04:41 Temperature Pulse Rate 86 84 91 H Respiratory 22 21 25 H Rate Blood Pressure 132/58 117/55 117/55 Blood Pressure [Left] O2 Sat by Pulse 100 100 100 Oximetry 07/13/16 07/13/16 07/13/16 04:51 05:01 05:11 Temperature Pulse Rate 85 93 H 87 Respiratory 21 21 22 Rate Blood Pressure 117/55 155/75 155/75 Blood Pressure [Left] O2 Sat by Pulse 100 100 100 Oximetry 07/13/16 05:21 Temperature Pulse Rate 88 Respiratory 16 Rate Blood Pressure 148/66 Blood Pressure [Left] O2 Sat by Pulse 100 Oximetry - Reevaluation(s) Reevaluation #1: 07/12/16 22:51 Bedside ultrasound with moderate amount of ascites fluid noted. Reevaluation #2: 07/13/16 00:37 Labs are noted. Normal white blood cell count is noted. Left lites studies are noted as well. I did give the patient an enema here due to suspicion that she is having some constipation. She did have very poor tolerance that holding the enema and did not have good result with this. Her abdomen is tender enough that I feel like any to evaluate further whether pushing the issue regarding constipation versus obstruction is a problem. We'll obtain CT examination as the plain film is difficult due to body habitus. Reevaluation #3: 07/13/16 05:45 CT study was performed demonstrating no obstructive pattern. There is some ileus noted of the intestines. Patient's pain subjectively is improved while she has been here. She has been here considerable amount of time. I feel that she is safe for home. I do not suspect surgical etiology to her discomfort. Her lab studies are in general are unremarkable as well. I did encourage her to just the very simple with her diet over the next 24 hours. Just clear liquids. And then after that she can advance as tolerated. I will start her as well on some lactulose to just try to get things moving. I did try to give her a fleets enema here. She was unable to retain it for very long however and the fluid just came out right away. Patient has been given routine instructions regarding returning if she has any acute worsening of her pains are persistence of them. Stable and safe for home at this time. May add as well, there is likely a component of her discomfort related to her ascites. I do not suspect SBP but I am concerned that she does not handle pain well and just the ascites that she is having likely is causing some discomfort for her. Feel it is appropriate to 2 paracentesis at this time. She is not that fullof fluid and believe it would set a bad precedent. ED Medical Decision Making - Lab Data Result diagrams: 07/12/16 21:56 07/12/16 21:56 - Radiology Data interpreted by me: Abdominal series with nonspecific. There is moderate amount of stool in the rectal vault send throughout the colon but does not have significant fecal loading. Critical care attestation.: If time is entered above; I have spent that time in minutes in the direct care of this critically ill patient, excluding procedure time. ED Disposition Clinical Impression: Ileus, unspecified Abdominal pain Qualifiers: Abdominal location: generalized Qualified Code(s): R10.84 - Generalized abdominal pain Disposition: DISCHARGED TO HOME OR SELFCARE Is pt being admited?: No Does the pt Need Aspirin: No Condition: Stable Instructions: Ileus (ED) Additional Instructions: Take a Liquid diet for the next 24 hours. Start your lactulose 15mL's twice a day. Try to be very conservative on your use of the pain medication. Return if worsening. Prescriptions: HYDROcodone/APAP 5-325 [[place] 5/325] 1 each PO Q6HR PRN #15 tablet PRN Reason: Pain Lactulose 10 gm PO BID PRN #500 ml PRN Reason: Constipation Referrals: PRIMARY CARE, [Primary Care Provider] - 3-5 Days Time of Disposition: 04:17
[2016-07-12 22:25] LABS: Mean Corpuscular Hemoglobin 25 pg (28-32)
[2016-07-12] MEDS ORDERED: ZOFRAN ONE (22:26)
[2016-07-12] MEDS ORDERED: ZOFRAN IV ONE (22:35)
[2016-07-12 22:46] LABS: Alanine Aminotransferase 16 units/L (7-56); Albumin 2.3 g/dL (3.9-5); Albumin/Globulin Ratio 0.6 %; Alkaline Phosphatase 178 units/L (35-129); Amylase 36 units/L (27-131); Anion Gap 13 mmol/L; BUN/Creatinine Ratio 14.28; Blood Urea Nitrogen 10 mg/dL (7-17); Calcium 7.8 mg/dL (8.4-10.2); Carbon Dioxide 27 mmol/L (22-30); Glucose 333 mg/dL (65-100); Lipase 31 units/L (13-60); Potassium 4.1 mmol/L (3.6-5.0); Sodium 133 mmol/L (137-145); Total Protein 5.9 g/dL (6.3-8.2)
[2016-07-12 22:51] LABS: Bilirubin,Direct < 0.2 mg/dL (0-0.2); Bilirubin,Indirect 0.2 mg/dL
[2016-07-12] MEDS ORDERED: FLEET PR ONE (23:09)
[2016-07-13] MEDS ORDERED: NACL ONE (02:44)
--- NOTE | 2016-07-13 03:08 | Cat Scan Report ---
FINAL REPORT PROCEDURE: CT ABDOMEN PELVIS W CON TECHNIQUE: Computerized axial tomography of the abdomen and pelvis was performed after the IV injection of iodinated nonionic contrast. HISTORY: abd pains r/o obstruction COMPARISON: 05/31/2016 FINDINGS: Visualized lower thorax: Mild bilateral lower lung atelectasis with slight right effusion.. Liver: Liver is enlarged. There is fatty infiltration. There is some nodularity consistent with cirrhosis.. Spleen: There are multiple small calcifications in the spleen, granulomatous change is suspected.. Gallbladder and biliary system: The gallbladder is absent. No dilatation of the biliary ductal system. Pancreas: Normal. Adrenals: Normal. Kidneys: Normal. GI tract: The stomach is normal. There are multiple loops of slightly dilated gas-filled small bowel in the upper abdomen. An ileus is suspected. The cecum, appendix and colon are normal.. Lymph nodes and mesentery: Normal. Vasculature: Mild atherosclerosis of the aorta and branching vessels. Bladder: Normal. Reproductive organs: No pelvic masses. Peritoneum: Moderate ascites is identified.. Musculoskeletal structures: Mild degenerative changes of the thoracic and lumbar spine.. Other: There is a fat containing umbilical hernia. Slight anasarca of the soft tissues are noted.. IMPRESSION: Mild upper abdominal small bowel ileus. No obstruction is seen. Liver is enlarged with fatty infiltration. There is some nodularity consistent with cirrhosis. Previous cholecystectomy. Moderate ascites in the abdomen and pelvis. Bilateral lower lung atelectasis with mild right effusion.
[2016-07-13] MEDS ORDERED: PERCOCET 5/325 PO ONE (04:12)
[2016-07-13 05:36] VITALS: BP 148/66
--- NOTE | 2016-07-13 07:47 | XRay Report ---
Abdominal series: Abdominal pain. Multiple dilated small bowel loops are noted in the mid abdomen with air-fluid levels. Decompressed colon. No free air. The abdomen is generally increased in density raising suspicion of ascites. Cholecystectomy clips are noted. AP view of the chest demonstrates coronary bypass changes with normal-sized heart and clear lungs. Impression: Small bowel ileus pattern. Suspicion of ascites.
== END 2016-07-13 06:15 | disposition home or self-care (01) ==
LOC: ED 20:47
DX: K56.7 Ileus, unspecified (principal); I10 Essential (primary) hypertension; E11.9 Type 2 diabetes mellitus without complications; F32.9 Major depressive disorder, single episode, unspecified; F17.200 Nicotine dependence, unspecified, uncomplicated; Z86.73 Personal history of transient ischemic attack (TIA), and cerebral infarction without residual deficits; Z90.49 Acquired absence of other specified parts of digestive tract; Z88.6 Allergy status to analgesic agent; Z86.19 Personal history of other infectious and parasitic diseases
CPT/HCPCS: 36415; 74022; 74177; 80048; 80074; 82150; 83690; 85025; 96372; 96374; 96375; 99285; J1170; J2405; Q9967; J1815